=== PATIENT | female | born 1970 | race Two or more races ===

== ENCOUNTER 2023-08-02 09:45 | Emergency (ER) | payer BC, OTHER ==
[2023-08-02 09:55] VITALS: BP 138/66; PULSE 66; RESP 18; TEMP 97.9; BMI 32.4
[2023-08-02] MEDS ORDERED: METHOCARBAMOL 500 MG TABLET PO ONE (10:33)
[2023-08-02] MEDS ORDERED: LIDOCAINE 4% PATCH TP ONE (10:33)
[2023-08-02] MEDS ORDERED: DEXAMETHASONE SOD PHOSPHATE 10 MG/1 ML VIAL IM ONE (10:34)
[2023-08-02] MEDS ORDERED: ACETAMINOPHEN 500 MG TABLET (FP) PO ONE (10:34)
[2023-08-02 11:14] LABS: EPI CELLS >36 /uL (0-25.1); HYALINE CASTS 1 /uL (0-3.1); PH,URINE 5.5 (5.0-8.0); URINE APPEARANCE CLOUDY; URINE BACTERIA 323 /uL (0-1359); URINE BILIRUBIN NEGATIVE (NEGATIVE); URINE COLOR YELLOW; URINE GLUCOSE (UA) NEGATIVE (NEGATIVE); URINE KETONE TRACE (NEGATIVE); URINE LEUK ESTERASE NEGATIVE (NEGATIVE); URINE NITRITE NEGATIVE (NEGATIVE); URINE PROTEIN NEGATIVE (NEGATIVE); URINE RBC 34 /uL (0-23.9); URINE UROBILINOGEN 0.2 mg/dL (0.2-1.0); URINE WBC 16 /uL (0-25.8)
== END 2023-08-02 13:09 | disposition home or self-care (01) ==
LOC: JER 09:45 → JERFT 09:45 → JER 13:09
DX: M54.50 Low back pain, unspecified (principal)
CPT/HCPCS: 72131-TC; 81003; 84703; 93005; 93010; 99284-25; J1100